=== PATIENT | female | born 1965 | race Caucasian/White ===

== ENCOUNTER 2017-06-07 09:12 | Day surgery (SDC) | payer OTHER ==
[~2017-06-07] VITALS: Ht 167.6 cm; Wt 73.9 kg
[~2017-06-07 09:12] MED LIST: MAGNESIUM400 MG PO; OMEGA-31000 MG PO; VITAMIN D35000 UNIT PO
--- NOTE | 2017-06-07 10:29 | NUR ---
06/07/17 Rae9 Bette Haque 1025-PATIENT ARRIVED TO PACU ON 3L NC O2 SAT 100% PATIENT REACTIVE ABDOMEN SOFT PASSING FLATUS. LAYING ON LEFT LATERAL.
--- NOTE | 2017-06-14 10:17 | OR ---
[facility] [address], [place] [address] Signed DATE OF OPERATION: 06/07/2017 SURGEON: Nanci Kurtz MD PREOPERATIVE DIAGNOSES: 1. Maternal grandfather with colon cancer in his 40s or 50s. 2. Chronic constipation. POSTOPERATIVE DIAGNOSIS: A 5 mm polyps in the cecum, distal right colon, 95 cm and 90 cm. PROCEDURE: Colonoscopy with hot biopsy. ESTIMATED BLOOD LOSS: None. INDICATIONS: Neha is a 51-year-old female, who was asked to see me initially in 2014. She was a bit anxious about the colonoscopy and decided to wait until now. She has talked about her intermittent lifelong constipation. Also, her maternal grandfather developed colon cancer in his late 40s or early 50s. Unfortunately, he from alcoholism. Neha is here to have her first colonoscopy. I gave her a pamphlet on colonoscopy and we looked at that together along with the risks including, but not limited to, gas bloating, crampy abdominal pain, bleeding, perforation, requiring surgery, and missed diagnosis. We also discussed the need for IV conscious sedation. She had expressed understanding and wished to proceed. PROCEDURE NOTE: Neha was taken into our endoscopy suite and placed in the left lateral decubitus position. She was given 6 mg of Versed and 150 mcg of fentanyl. Also, she was feeling some nausea preoperatively. She got 12.5 mg of Phenergan and 4 mg of Zofran. She also was complaining of a headache and said that Aleve is her best medication. Consequently, we are going to write for that in the postoperative recovery room if she would like to have that. Once sedated, digital rectal exam was performed and this was unremarkable. The adult colonoscope was introduced and advanced all around into the cecum under direct visualization of camera without difficulty. Her prep was good. The scope was then slowly withdrawn. We started with her first polyp in the cecum. We removed them with the help of hot biopsy forceps. In the rectum, the scope was then retroflexed and there was no additional pathology noted above the anal canal. After this, the gas was Electronically Signed By: NANCI KURTZ MD 06/14/17 1017 PATIENT NAME: NEHA MENDEZ OPERATIVE REPORT DATE OF : 63 PHYSICIAN: NANCI KURTZ MD REPORT #: [id number] REPORT IS CONFIDENTIAL AND NOT TO BE RELEASED WITHOUT AUTHORIZATION [facility] [address], [place] [address] Signed suctioned out and the colonoscope removed. Neha tolerated the procedure quite well. RECOMMENDATIONS: I will see Neha back in my office in 7 to 14 days to review her results. Nanci Kurtz MD ALB/RICHARDL /[id number] cc: April Garcia MD Electronically Signed By: NANCI KURTZ MD 06/14/17 1017 PATIENT NAME: NEHA MENDEZ OPERATIVE REPORT DATE OF : 63 PHYSICIAN: NANCI KURTZ MD REPORT #: [id number] REPORT IS CONFIDENTIAL AND NOT TO BE RELEASED WITHOUT AUTHORIZATION
== END 2017-06-07 11:25 | disposition home or self-care (01) ==
LOC: DS 09:12 → OPS 09:12 → DS 10:30 → OPS 11:25
PROVIDERS: Colon & Rectal Surgery
PROC: 0DBK8ZZ Excision of Ascending Colon, Via Natural or Artificial Opening Endoscopic (ICD-10-PCS; 2017-06-07)
PROC: 0DBF8ZZ Excision of Right Large Intestine, Via Natural or Artificial Opening Endoscopic (ICD-10-PCS; 2017-06-07)
PROC: 0DBH8ZZ Excision of Cecum, Via Natural or Artificial Opening Endoscopic (ICD-10-PCS; principal; 2017-06-07 10:30)
DX: D12.2 Benign neoplasm of ascending colon (principal); K51.40 Inflammatory polyps of colon without complications; N81.11 Cystocele, midline; N81.6 Rectocele; E07.9 Disorder of thyroid, unspecified; E04.9 Nontoxic goiter, unspecified; K59.09 Other constipation; Z90.89 Acquired absence of other organs; Z90.710 Acquired absence of both cervix and uterus; Z98.51 Tubal ligation status; Z98.890 Other specified postprocedural states; Z88.5 Allergy status to narcotic agent; Z80.0 Family history of malignant neoplasm of digestive organs
CPT/HCPCS: 99153; G0500; J2250; J2405; J2550; J3010; J7120